=== PATIENT | male | born 1960 | race Caucasian/White ===

== ENCOUNTER → 2017-12-22 08:49 | Outpatient (CLI) | payer BC, SELFPAY ==
--- NOTE | 2017-12-22 | IMM_PTH ---
PATIENT: PAYAM GRANADOS LOC: [facility] U#:[id number] AGE/SX: 65/M ROOM: RE12/22/[address]: Dr. Curt Maier MD : 1960 BED: DIS: SPEC #: [id number] RECD: 12/26/17 10:28 STATUS: BETSY REJanice #: [id number] SHAHRIAR: 12/22/17 00:[address]: Curt Maier DEPT: IMMUNOHISTOCHEMISTRY RECD BY: Emilee Owens Tissues: A - PROSTATE RIGHT Procedures: P40 (add) 34BE12 (initial) PHYSICIAN & INSTITUTION [place] [address] SPECIMEN INFORMATION: Tissue Source: A - Right prostate, apex, core biopsy Clinical Info: Elevated PSA Specimen Number: [id number] CPT code: 64603, 09238 METHODOLOGY: Deparaffinized sections of prefer/formalin-fixed tissue or PAP/DQ stained slides are incubated with monoclonal/polyclonal antibodies/oligonucleotide probes. Localization is made via biotin free immunoperoxidase method. Appropriate controls are performed and reacted as expected. Results on target cell population are indicated in the following table: RESULTS: ANTIBODY / CLONE RESULT Block A P40 (BC28) positive 34BE12 (34BE12) positive These tests were developed and their performance characteristics determined by [facility]. They may not have been cleared or approved by the U.S. Food and Drug Administration. The FDA has determined that such clearance or approval is not necessary. INTERPRETATION: A. Right prostate, apex, core biopsy: Negative for adenocarcinoma. NELA:remberto 12/26/17
--- NOTE | 2017-12-22 08:00 | PROSBIL_PTH ---
PATIENT: PAYAM GRANADOS LOC: [facility] U#:[id number] AGE/SX: 65/M ROOM: RE12/22/[address]: Dr. Curt Maier MD : 1960 BED: DIS: SPEC #: [id number] RECD: 12/22/17 20:25 STATUS: BETSY ANGEL #: [id number] SHAHRIAR: 12/22/17 08:[address]: Curt Maier DEPT: SURGICAL PATHOLOGY RECD BY: Emilee Owens Tissues: A - PROSTATE RIGHT B - PROSTATE RIGHT C - PROSTATE RIGHT D - PROSTATE LEFT E - PROSTATE LEFT F - PROSTATE LEFT Procedures: PROSTATE BX HEADER OPERATION: Prostate biopsy PRE-OP DIAGNOSIS: Elevated PSA TISSUE SUBMITTED: A - Right apex, B - Right mid, C - Right base, D - Left apex, E - Left mid, F - Left base MICROSCOPIC DIAGNOSIS A. Right prostate, apex, core biopsy: Prostatic tissue, negative for malignancy. See comment. B. Right prostate, mid, core biopsy: Prostatic tissue, negative for malignancy. C. Right prostate, base, core biopsy: Prostatic tissue, negative for malignancy. D. Left prostate, apex, core biopsy: Prostatic tissue, negative for malignancy. E. Left prostate, mid, core biopsy: Prostatic tissue, negative for malignancy. F. Left prostate, base, core biopsy: Prostatic tissue, negative for malignancy. SJ:remberto 12/26/17 COMMENT A. Immunohistochemistry ([id number]) supports the above diagnosis. MICROSCOPIC DESCRIPTION Slides are reviewed. GROSS DESCRIPTION A - Received is one container designated prostate, right apex. The specimen consists of two elongated fragments of light mott-white soft tissue measuring 1.2 and 1.6 cm in length and 0.1 cm in diameter. The specimen is totally submitted in one cassette. B - Received is one container designated prostate, right mid. The specimen consists of two elongated fragments of light mott-white soft tissue measuring 1.2 and 1.5 cm in length and 0.1 cm in diameter. The specimen is totally submitted in one cassette. C - Received is one container designated prostate, right base. The specimen consists of two elongated fragments of light mott-white soft tissue measuring 1.5 and 2 cm in length and 0.1 cm in diameter. The specimen is totally submitted in one cassette. D - Received is one container designated prostate, left apex. The specimen consists of two elongated fragments of light mott-white soft tissue measuring 1.3 and 1.5 cm in length and 0.1 cm in diameter. The specimen is totally submitted in one cassette. E - Received is one container designated prostate, left mid. The specimen consists of two elongated fragments of light mott-white soft tissue measuring 1.2 and 1.4 cm in length and 0.1 cm in diameter. The specimen is totally submitted in one cassette. F - Received is one container designated prostate, left base. The specimen consists of two elongated fragments of light mott-white soft tissue each measuring 1.5 cm in length and 0.1 cm in diameter. The specimen is totally submitted in one cassette. / SJ:rg 12/23/17 TC:5 CPT: 46283 x6
== END ==
PROVIDERS: Visit Provider Urology
DX: R97.20 Elevated prostate specific antigen [PSA] (principal)
CPT/HCPCS: 88305; 88341; 88342; G0416

== ENCOUNTER 2024-11-22 09:00 | Outpatient (RCR) | payer MEDICARE, SELFPAY ==
[2024-11-15 08:51] VITALS: BP 139/85; PULSE 69; RESP 18; TEMP 36.1
--- NOTE | 2024-11-15 09:51 | PCM.WC.HP ---
History of Present Illness Date of Service: 11/15/24 Chief Complaint: Right lower extremity ulceration History of Wound: Patient is a 64-year-old male who presents to the wound care center for nonhealing right lower extremity ulceration. He has PMHx of HTN, elevation of PSA, hyperlipidemia, obesity, and BPH. Does follow Dr. Barton of urology. Patient does state that the ulceration developed over the summertime in July but he feels this was from possible sun exposure as he did have a blister after being outside which did rupture and has been unable to fully heal since. He states he was close to healing however this did reopen. Ulceration has been present for 3 months and he had been applying antibiotic ointment with Band-Aid to the site. States that the wound is nonpainful and otherwise he does feel well. Patient does not wear compression stockings but according to notes does have some mild edema. He denies N/V/F/chills. Denies further complaints. [facility] [place] [place] Home Medications ?Medication ?Instructions ?Recorded ?Last Taken ?Type amlodipine 5 mg tablet 5 mg PO DAILY 11/15/24 Unknown History atorvastatin 10 mg tablet 10 mg PO DAILY 11/15/24 Unknown History hydrochlorothiazide 25 mg tablet 25 mg PO DAILY 11/15/24 Unknown History potassium chloride 10 mEq meq PO BID potassium 11/15/24 Unknown History capsule,extended release Allergy/AdvReac Type Severity Reaction Status Date / Time No Known Allergies Allergy Verified 11/15/24 12:15 ROS Constitutional Constitutional: Denies anorexia, change in weight, chills, fatigue or fever(s) Eyes Eyes: Denies blurry vision, change in vision or double vision ENT HEENT: Denies dysphagia, sinus pressure or sore throat Cardiovascular Cardiovascular: Denies chest pain, claudication or palpitations Respiratory/Chest Respiratory/Chest: Denies cough, shortness of breath at rest or wheezing Gastrointestinal Gastrointestinal: Denies abdominal pain, constipation, diarrhea, nausea or vomiting Genitourinary Genitourinary: Denies dysuria, hematuria or urinary urgency Musculoskeletal Musculoskeletal: Denies joint pain, joint stiffness or joint swelling Integumentary Integumentary: Denies jaundice, lesions, pruritus or rash Neurologic Neurologic: Denies dizziness, numbness or seizures Psychiatric Psychiatric: Denies anxiety or depression Endocrine Endocrinology: Denies cold intolerance or heat intolerance Hematologic/Lymphatic Hematologic/Lymphatic: Denies easy bleeding or easy bruising Vital Signs Vital Signs Vital Signs: 11/15/24 08:51 Temperature 97 F L Temperature Source Temporal Pulse Rate 69 Respiratory Rate 18 Blood Pressure 139/85 H Blood Pressure Mean 103 Blood Pressure Source Monitor Blood Pressure Position Semi-Fowlers Blood Pressure Location Left Arm Oxygen Delivery Method Room Air Physical Exam Const alert, oriented x3 and no apparent distress General Appearance: cooperative HEENT normocephalic Eyes General Eye: normal appearance of both eyes Neck General: normal visual inspection Lymph Lymphatic: no lymphadenopathy noted and no lymphedema noted Resp normal respiratory effort Cardio regular rate and regular rhythm Extremity no calf tenderness Extremity Narrative: Bilateral lower extremity: Vascular: DP and PT pulses palpable. CFT is less than 4 seconds to digits. Normal temperature gradient. Hair growth is diminished to digits. Neurologic: Epicritic sensation intact without focal deficit noted. Musculoskeletal: Muscle strength 5 of 5 age-appropriate. No pain to palpation of calf. Decreased range of motion of the ankle joint in dorsiflexion with the knee extended without pain or crepitus. No pain to palpation about the ulcerative site. Dermatologic: There is hyperpigmentation of the lower extremity skin secondary to chronic sun exposure. Very mild edema noted to the lower extremity which is nonpitting. There is a full-thickness ulceration noted to the posterior medial aspect of the right lower extremity with healthy appearing granular base secondary to previous blister formation in the desquamatization of the skin. No signs of infection. Skin no rashes or lesions noted Neuro moves all extremities Debridement Note Debridement Note Wound debrided: Right lower extremity Laterality: Right Wound Grade/Stage: Jorge stage I Type of Debridement: Excisional debridement Anesthesia Used: 5% Lidocaine Gel Depth: Down to and including healthy tissue and in the subcutaneous layer Percentage of wound debrided: 100 Instrument Used: 5mm curette Tissue Removed: Fibrous, devitalized subcutaneous, biofilm, slough Severity: Fat Layer Exposed Amount of bleeding with debridement: Mild Bleeding Controlled with: Compression and gauze Patient tolerated procedure: Patient tolerated procedure well Post-Debridement Measurements and Additional Note: Post-Debridement Measurements/Treatment WC - Nurse 1 - General Ulcer Assessment Start: 11/15/24 08:50 Freq: Status: Active Protocol: AMARJIT.LOWEXT Activity Type Activity Date Activity User E-sign Co-sign Detail Recorded Client Recorded Date Recorded By Document 11/15/24 08:51 IN [id number] 11/15/24 09:05 IN 11/15/24 08:51 - Today's Visit Information Type of service Initial Visit Arrival Mode Ambulatory Accompanied by self Patient Identification Verified (Name & Yes ) Safety Precautions Fall Prevention Vital Signs Temperature (97.8 F-99.1 F) 97 F L Temperature Source Temporal Pulse Rate (60-100) 69 Pulse Location Monitor Respiratory Rate (12-18) 18 Respiratory rate source Monitor Oxygen Delivery Method Room Air Blood Pressure (90/60-120/80) 139/85 H Blood Pressure Mean 103 Source Monitor Position Semi-Fowlers Blood Pressure Location Left Arm History Since Last Visit- (Skip if this is Patient's initial visit) Has dressing in place as prescribed Yes Has compression in place as prescribed Yes Has offloadiing in place as prescribed Yes Experienced any changes in pain level or Yes management Left Footwear Regular Shoe Right Footwear Regular Shoe Pain Scale: 0-10 Numeric Is Patient Pain Free? Yes - Nurse 1 - General Ulcer Measurement Start: 11/15/24 08:50 Freq: Status: Active Protocol: Activity Type Activity Date Activity User E-sign Co-sign Detail Recorded Client Recorded Date Recorded By Document 11/15/24 08:51 IN [id number] 11/15/24 09:05 IN 11/15/24 08:51 Wound Center Nurse 1 #1 Right Medial Leg -Current Size (cm) - Length 4 -Current Size (cm) - Width 3 -Current Size (cm) - Depth 0.1 -Total Square Cm 12 -Date of Last Picture (Recall this 11/15/24 field) -Photo Taken Yes -Tunneling No -Undermining/Tunneling No -Circular Undermining No -Exudate Amt Medium -Exudate Type Serosanguineous -Wound Margin Flat & Intact -Granulation Amt Large (67-100%) -Granulation Quality Pale,[place] -Necrosis Amt Small (1-33%) -Necrotic Tissue Type Adherent Slough -Texture (Sofia-wound Skin Appearance) Assessed -Moisture (Sofia-wound Skin Appearance) Assessed -Color (Sofia-wound Skin Appearance) Assessed, Erythema -Temperature (Sofia-wound Skin No Abnormality Appearance) (Pt Warm) -Tenderness on Palpation (Sofia-wound No Skin Appearance) -Ulcer Cleansing Soap and Water -Foul Odor after Cleansing No -Anesthetic Used 5% Lidocaine Gel Lower Limb Edema Present NA - Nurse 2 - General Ulcer CM Notes Start: 11/15/24 08:50 Freq: Status: Active Protocol: Activity Type Activity Date Activity User E-sign Co-sign Detail Recorded Client Recorded Date Recorded By Document 11/15/24 09:17 [facility] [id number] 11/15/24 09:20 [facility] 11/15/24 09:17 Wound Center Nurse 2 #1 Right Medial Leg -Time 09:17 -Correct Patient Yes -Correct Side, Site, Position Yes -Correct Procedure Yes -Procedure Performed Yes -Type of Procedure Debridement -Clinical Debridement Subcutaneous -Tissue Removed Subcutaneous -Post Debridement (cm) - Length 4 -Post Debridement (cm) - Width 2.7 -Post Debridement (cm) - Depth 0.1 -Total Square (Post) (cm) 10.8 -Area of Debridement (cm) - Length 4 -Area of Debridement (cm) - Width 2.7 -Total Square (Area) (cm) 10.8 -Tunneling No -Undermining/Tunneling No -Circular Undermining No -Wound/Ulcer Outcome Not Healed -Ulcer Cleansing Rinsed/ Irrigated with Saline -Foul Odor after Cleansing No -Bioengineered Tissue No -Bleeding Controlled with Pressure -Treatment Response Procedure Tolerated Well -Debridement - Subq, 1st 20sq cm Yes Pain Scale: 0-10 Numeric Is Patient Pain Free? Yes - Nurse 3 - General Ulcer D/C NN Start: 11/15/24 08:50 Freq: Status: Active Protocol: Activity Type Activity Date Activity User E-sign Co-sign Detail Recorded Client Recorded Date Recorded By Document 11/15/24 09:35 IN [id number] 11/15/24 09:37 IN 11/15/24 09:35 Wound Care Center Nurse 3 #1 Right Medial Leg -Foul Odor after Cleansing No -Negative Pressure Wound Therapy N/A -Primary Dressing Applied Promogran Adelina Matter -Primary Dressing Covered/Secured with Dry Gauze & Roll Gauze, Secured with Tape -Promogran Aedlina Matter 2 RLE -Tubular Bandage Single Layer -Size of Tubigrip Used Size E -Size E ($) 1 Pain Scale: 0-10 Numeric Is Patient Pain Free? Yes WC - Visit Discharge Discharge Condition Stable Ambulatory Status Ambulatory Transportation Private Auto Medication Reconcilliation completed & No provided to patient/care provider Clinical Summary of Care Provided Yes Notes: pt understood new dressing orders. Assessment/Plan Assessment/Plan (1) Non-pressure chronic ulcer of right calf with fat layer exposed: CODE(S): L97.212 - Non-pressure chronic ulcer of right calf with fat layer exposed (2) Venous insufficiency (chronic) (peripheral): CODE(S): I87.2 - Venous insufficiency (chronic) (peripheral) (3) Localized edema: CODE(S): R60.0 - Localized edema PLAN: Plan Patient seen and evaluated Predebridement measurement: 4.3 cm x 2.6 cm x 0.1 cm Postdebridement measurement 4.4 cm x 2.7 cm x 0.1 cm Ulceration underwent debridement as noted in the clinical panel above. Following debridement Adelina was applied to the ulcerative bed dressed with dry sterile dressing, and Tubigrip compression applied to the right lower extremity. He is to change dressing daily. Discussed elevation of lower extremities while at rest to aid in edema control. Discussed to ensure that the recliner or portion during elevation has nothing resting overlying the ulcerative site to reduce pressure at the site. Discussed continued protein intake to aid in wound healing. Alex supplementation was recommended. Will plan to obtain venous studies of bilateral lower extremities. Discussed signs and symptoms of infection. Discussed if he notices increasing redness around the ulcerative site that moves up the leg, purulent drainage from the wound site, foul odor from the wound site, or if he experiences fever greater than 101 degree accompanied by nausea, vomiting, chills of these are signs of a progressing infection and he should report to the ED for IV antibiotics and for further evaluation. He is understanding of this. The following work up and care recommendations were made: Dressing: Adelina, DSD, Tubigrip compression. Change daily Wash: Soap and water Tissue growth optimization: Adelina Offload: Elevation to lower extremities and Tubigrip compression Vascular: DP and PT pulses palpable. Vascular status not impacting healing status. Do feel this is more venous in nature. Edema: Elevation of lower extremities and Tubigrip compression Infection: No signs of infection Pain: May take [id number] Tylenol for discomfort Host factors: Suspect chronic venous insufficiency as underlying cause. I answered all the patient's questions. To return to the wound healing center in 1 week or call sooner if the patient has any questions or concerns.
[2024-11-22 08:58] VITALS: BP 135/81; PULSE 63; RESP 14; TEMP 35.9
--- NOTE | 2024-11-22 09:52 | PN.PCM_ITS ---
History of Present Illness Date of Service: 11/22/24 Chief Complaint: Right lower extremity ulceration History of Wound: Patient is a 64-year-old male who presents to the wound care center for nonhealing right lower extremity ulceration. He has PMHx of HTN, elevation of PSA, hyperlipidemia, obesity, and BPH. Does follow Dr. Barton of urology. Patient does state that the ulceration developed over the summertime in July but he feels this was from possible sun exposure as he did have a blister after being outside which did rupture and has been unable to fully heal since. He states he was close to healing however this did reopen. Ulceration has been present for 3 months and he had been applying antibiotic ointment with Band-Aid to the site. States that the wound is nonpainful and otherwise he does feel well. Patient does not wear compression stockings but according to notes does have some mild edema. He denies N/V/F/chills. Denies further complaints. Subjective Subjective This is a 64-year-old male who returns to the wound care center for continued follow-up of a right lower extremity ulceration secondary to chronic venous insufficiency. Patient has been changing dressing daily with Adelina and is wearing Tubigrip compression. He does notice a difference in his swelling with the compression and elevation of his legs. Denies constitutional symptoms. Denies further complaints. Objective Data Objective Data Vital Signs: Vital Signs Temp Pulse Resp BP O2 Del Method 96.6 F L 63 14 135/81 H Room Air 11/22/24 08:58 11/22/24 08:58 11/22/24 08:58 11/22/24 08:58 11/15/24 08:51 Oxygen Delivery Method Room Air Physical Exam Const alert, oriented x3 and no apparent distress General Appearance: cooperative HEENT normocephalic Eyes General Eye: normal appearance of both eyes Neck General: normal visual inspection Lymph Lymphatic: no lymphadenopathy noted and no lymphedema noted Resp normal respiratory effort Cardio regular rate and regular rhythm Extremity no calf tenderness Extremity Narrative: Bilateral lower extremity: Vascular: DP and PT pulses palpable. CFT is less than 4 seconds to digits. Normal temperature gradient. Hair growth is diminished to digits. Neurologic: Epicritic sensation intact without focal deficit noted. Musculoskeletal: Muscle strength 5 of 5 age-appropriate. No pain to palpation of calf. Decreased range of motion of the ankle joint in dorsiflexion with the knee extended without pain or crepitus. No pain to palpation about the ulcerative site. Dermatologic: There is hyperpigmentation of the lower extremity skin secondary to chronic sun exposure. Very mild edema noted to the lower extremity which is nonpitting. There is a full-thickness ulceration noted to the posterior medial aspect of the right lower extremity with healthy appearing granular base secondary to previous blister formation in the desquamatization of the skin. No signs of infection. Skin no rashes or lesions noted Neuro moves all extremities Debridement Note Debridement Note Wound debrided: Right lower extremity Laterality: Right Wound Grade/Stage: Jorge stage I Type of Debridement: Excisional debridement Anesthesia Used: 5% Lidocaine Gel Depth: Down to and including healthy tissue and in the subcutaneous layer Percentage of wound debrided: 100 Instrument Used: 5mm curette Tissue Removed: Fibrous, devitalized subcutaneous, biofilm, slough Severity: Fat Layer Exposed Amount of bleeding with debridement: Mild Bleeding Controlled with: Compression and gauze Patient tolerated procedure: Patient tolerated procedure well Post-Debridement Measurements and Additional Note: Post-Debridement Measurements/Treatment - Nurse 1 - General Ulcer Assessment Start: 11/15/24 08:50 Freq: Status: Active Protocol: CARLOS Activity Type Activity Date Activity User E-sign Co-sign Detail Recorded Client Recorded Date Recorded By Document 11/15/24 08:51 MT [id number] 11/15/24 09:05 MT Document 11/22/24 08:58 ML [id number] 11/22/24 09:00 ML 11/15/24 11/22/24 08:51 08:58 - Today's Visit Information Type of service Initial Visit Follow-up Visit (Physician/SERVICE LIAISON REPRESENTATIVE ) Arrival Mode Ambulatory Ambulatory Accompanied by self Patient Identification Verified (Name & Yes Yes ) Patient Requires Transmission-Based No Precautions Safety Precautions Fall Prevention Vital Signs Temperature (97.8 F-99.1 F) 97 F L 96.6 F L Temperature Source Temporal Temporal Pulse Rate (60-100) 69 63 Pulse Location Monitor Monitor Respiratory Rate (12-18) 18 14 Respiratory rate source Monitor Monitor Oxygen Delivery Method Room Air Blood Pressure (90/60-120/80) 139/85 H 135/81 H Blood Pressure Mean (mm Hg) 103 99 Source Monitor Monitor Position Semi-Fowlers Sitting Blood Pressure Location Left Arm Left Arm History Since Last Visit- (Skip if this is Patient's initial visit) Have you changed medications since your No last visit? Any new allergies or adverse reactions No Had a fall/change in ADL's that may No increase risk of falls Signs or symptoms of abuse and/or No neglect since last visit Has dressing in place as prescribed Yes Yes Has compression in place as prescribed Yes Yes Has offloadiing in place as prescribed Yes Yes Experienced any changes in pain level or Yes No management Left Footwear Regular Shoe Right Footwear Regular Shoe Pain Scale: 0-10 Numeric Is Patient Pain Free? Yes Yes - Nurse 1 - General Ulcer Measurement Start: 11/15/24 08:50 Freq: Status: Active Protocol: Activity Type Activity Date Activity User E-sign Co-sign Detail Recorded Client Recorded Date Recorded By Document 11/15/24 08:51 MT [id number] 11/15/24 09:05 MT Document 11/22/24 08:58 ML [id number] 11/22/24 09:00 ML 11/15/24 11/22/24 08:51 08:58 Wound Center Nurse 1 #1 Right Medial Leg -Current Size (cm) - Length 4 2.2 -Current Size (cm) - Width 3 1.8 -Current Size (cm) - Depth 0.1 0.1 -Total Square Cm 12 3.96 -Date of Last Picture (Recall this 11/15/24 field) -Photo Taken Yes -Tunneling No -Undermining/Tunneling No -Circular Undermining No -Exudate Amt Medium -Exudate Type Serosanguineous -Wound Margin Flat & Intact -Granulation Amt Large (67-100%) -Granulation Quality Pale,[place] -Slough/Fibrin Yes -Necrosis Amt Small (1-33%) Medium (34-66%) -Necrotic Tissue Type Adherent Slough Adherent Slough -Texture (Sofia-wound Skin Appearance) Assessed Assessed -Moisture (Sofia-wound Skin Appearance) Assessed Assessed -Color (Sofia-wound Skin Appearance) Assessed, Assessed Erythema -Temperature (Sofia-wound Skin No Abnormality No Abnormality Appearance) (Pt Warm) (Pt Warm) -Tenderness on Palpation (Sofia-wound No No Skin Appearance) -Ulcer Cleansing Soap and Water Soap and Water -Foul Odor after Cleansing No No -Anesthetic Used 5% Lidocaine 5% Lidocaine Gel Gel Lower Limb Edema Present NA WC - Nurse 2 - General Ulcer CM Notes Start: 11/15/24 08:50 Freq: Status: Active Protocol: Activity Type Activity Date Activity User E-sign Co-sign Detail Recorded Client Recorded Date Recorded By Document 11/15/24 09:17 BMF [id number] 11/15/24 09:20 BMF Document 11/22/24 09:35 DS [id number] 11/22/24 09:37 DS 11/15/24 11/22/24 09:17 09:35 Wound Center Nurse 2 #1 Right Medial Leg -Time 09:17 09:35 -Correct Patient Yes Yes -Correct Side, Site, Position Yes Yes -Correct Procedure Yes Yes -Procedure Performed Yes Yes -Type of Procedure Debridement Debridement -Clinical Debridement Subcutaneous Subcutaneous -Tissue Removed Subcutaneous Subcutaneous -Post Debridement (cm) - Length 4 2.5 -Post Debridement (cm) - Width 2.7 1.5 -Post Debridement (cm) - Depth 0.1 0.1 -Total Square (Post) (cm) 10.8 3.75 -Area of Debridement (cm) - Length 4 2.5 -Area of Debridement (cm) - Width 2.7 1.5 -Total Square (Area) (cm) 10.8 3.75 -Tunneling No No -Undermining/Tunneling No No -Circular Undermining No No -Wound/Ulcer Outcome Not Healed Not Healed -Ulcer Cleansing Rinsed/ Rinsed/ Irrigated with Irrigated with Saline Saline -Foul Odor after Cleansing No No -Bioengineered Tissue No No -Bleeding Controlled with Pressure Pressure -Treatment Response Procedure Tolerated Well -Debridement - Subq, 1st 20sq cm Yes Yes Pain Scale: 0-10 Numeric Is Patient Pain Free? Yes Yes - Nurse 3 - General Ulcer D/C NN Start: 11/15/24 08:50 Freq: Status: Active Protocol: Activity Type Activity Date Activity User E-sign Co-sign Detail Recorded Client Recorded Date Recorded By Document 11/15/24 09:35 MT [id number] 11/15/24 09:37 MT Document 11/22/24 09:52 ML [id number] 11/22/24 09:52 ML 11/15/24 11/22/24 09:35 09:52 Wound Care Center Nurse 3 #1 Right Medial Leg -Ulcer Cleansing Rinsed/ Irrigated with Saline -Foul Odor after Cleansing No -Negative Pressure Wound Therapy N/A -Primary Dressing Applied Promogran Promogran Adelina Matter Adelina Matter -Primary Dressing Covered/Secured with Dry Gauze & Dry Gauze & Roll Gauze, Roll Gauze, Secured with Secured with Tape Tape -Promogran Adelina Matter 2 1 RLE -Tubular Bandage Single Layer Single Layer -Size of Tubigrip Used Size E Size D -Size D ($) 1 -Size E ($) 1 Pain Scale: 0-10 Numeric Is Patient Pain Free? Yes Yes WC - Visit Discharge Discharge Condition Stable Ambulatory Status Ambulatory Transportation Private Auto Medication Reconcilliation completed & No provided to patient/care provider Clinical Summary of Care Provided Yes Notes: pt understood new dressing orders. Assessment/Plan Assessment/Plan (1) Non-pressure chronic ulcer of right calf with fat layer exposed: CODE(S): L97.212 - Non-pressure chronic ulcer of right calf with fat layer exposed (2) Venous insufficiency (chronic) (peripheral): CODE(S): I87.2 - Venous insufficiency (chronic) (peripheral) (3) Localized edema: CODE(S): R60.0 - Localized edema PLAN: Plan Patient seen and evaluated Predebridement measurement: 2.4 cm x 1.4 cm x 0.1 cm Postdebridement measurement 2.5 cm x 1.5 cm x 0.1 cm Ulceration underwent debridement as noted in the clinical panel above. Following debridement Adelina was applied to the ulcerative bed dressed with dry sterile dressing, and Tubigrip compression applied to the right lower extremity. He is to change dressing daily. There is decrease in size of the ulceration versus his previous visit with the current treatment regiment. Discussed elevation of lower extremities while at rest to aid in edema control. Discussed to ensure that the recliner or portion during elevation has nothing resting overlying the ulcerative site to reduce pressure at the site. Discussed continued protein intake to aid in wound healing. Alex supplementation was recommended. Will plan to obtain venous studies of bilateral lower extremities. Discussed signs and symptoms of infection. Discussed if he notices increasing redness around the ulcerative site that moves up the leg, purulent drainage from the wound site, foul odor from the wound site, or if he experiences fever greater than 101 degree accompanied by nausea, vomiting, chills of these are signs of a progressing infection and he should report to the ED for IV antibiotics and for further evaluation. He is understanding of this. The following work up and care recommendations were made: Dressing: Adelina, DSD, Tubigrip compression. Change daily Wash: Soap and water Tissue growth optimization: Adelina Offload: Elevation to lower extremities and Tubigrip compression Vascular: DP and PT pulses palpable. Vascular status not impacting healing status. Do feel this is more venous in nature. Edema: Elevation of lower extremities and Tubigrip compression Infection: No signs of infection Pain: May take [id number] Tylenol for discomfort Host factors: Suspect chronic venous insufficiency as underlying cause. I answered all the patient's questions. To return to the wound healing center in 1 week or call sooner if the patient has any questions or concerns.
--- NOTE | 2024-11-22 14:25 | WC ---
PHOTO-RIGHT ANKLE 11/22/24
--- NOTE | 2024-11-27 08:20 | WC ---
Dr. Ellison transfers care of this patient over to Dr. Gregory as of 11/22/24
== END 2024-11-27 23:59 | disposition home or self-care (01) ==
LOC: WC 09:00
PROVIDERS: PCP Internal Medicine; Referring Provider Nurse Practitioner Acute Care; Visit Provider Student in an Organized Health Care Education/Training Program
DX: I87.2 Venous insufficiency (chronic) (peripheral) (principal); L97.212 Non-pressure chronic ulcer of right calf with fat layer exposed; R60.0 Localized edema
CPT/HCPCS: 11042; 99213; G0463

== ENCOUNTER 2024-12-20 08:45 | Outpatient (RCR) | payer MEDICARE, SELFPAY ==
[2024-11-29 09:22] VITALS: BP 148/89; PULSE 75; RESP 18; TEMP 36.6
--- NOTE | 2024-11-29 12:05 | PCM.WC.HP ---
History of Present Illness Date of Service: 11/29/24 Chief Complaint: Right lower extremity ulceration History of Wound: Mr. Kaba is a 64-year-old who is a transfer of care to pr. Had been seeing podiatry/wound care here for right lower extremity ulceration which he sustained after significant sun exposure/sunburn. Has been using Adelina daily and covering with a dry dressing. He believes that there has been improvement. No history of diabetes. Appetite is good and feels well overall. He has no new concerns at this time. [facility] Medical History (Updated 11/29/24 @ 12:[address] Rashid Gregory MD) Sunburn, unspecified Home Medications ?Medication ?Instructions ?Recorded ?Last Taken ?Type amlodipine 5 mg tablet 5 mg PO DAILY 11/15/24 Unknown History atorvastatin 10 mg tablet 10 mg PO DAILY 11/15/24 Unknown History hydrochlorothiazide 25 mg tablet 25 mg PO DAILY 11/15/24 Unknown History potassium chloride 10 mEq meq PO BID potassium 11/15/24 Unknown History capsule,extended release Allergy/AdvReac Type Severity Reaction Status Date / Time No Known Allergies Allergy Verified 11/15/24 12:15 ROS Constitutional Constitutional: Denies anorexia, change in weight, chills, fatigue or fever(s) Eyes Eyes: Denies blurry vision, change in vision, diplopia, discongugate gaze, double vision or exophthalmos ENT HEENT: Denies abnormal hearing, bleeding gums, change in voice, dysphagia, sinus pressure or sore throat Cardiovascular Cardiovascular: Denies chest pain, claudication, cold extremities, diaphoresis, dizziness or palpitations Respiratory/Chest Respiratory/Chest: Denies cough, excessive phlegm production, hemoptysis, hoarseness, inability to speak, shortness of breath at rest or wheezing Gastrointestinal Gastrointestinal: Denies abdominal pain, constipation, diarrhea, dysphagia, nausea or vomiting Genitourinary Genitourinary: Denies abdominal discomfort, dysuria, flank pain, hematuria or urinary urgency Musculoskeletal Musculoskeletal: Denies joint pain, joint stiffness or joint swelling Integumentary Integumentary: Reports wounds; Denies erythema, furuncle, hirsutism, jaundice, pruritus or rash Neurologic Neurologic: Denies abnormal hearing, abnormal movements, abnormal speech, dizziness, numbness or seizures Psychiatric Psychiatric: Denies anxiety, auditory hallucinations, behavioral changes, cognitive impairment, depression or difficulty concentrating Endocrine Endocrinology: Denies change in body appearance, cold intolerance, deepening of the voice or heat intolerance Hematologic/Lymphatic Hematologic/Lymphatic: Denies easy bleeding or easy bruising Allergic/Immunologic Allergic/Immunologic: Denies lip swelling, tongue swelling, urticaria, eczemia or wheezing Vital Signs Vital Signs Vital Signs: 11/29/24 09:22 Temperature 97.9 F Temperature Source Temporal Pulse Rate 75 Respiratory Rate 18 Blood Pressure 148/89 H Blood Pressure Mean 108 Blood Pressure Source Monitor Blood Pressure Position Semi-Fowlers Blood Pressure Location Left Arm Physical Exam Const alert, oriented x3 and no apparent distress General Appearance: cooperative, comfortable and well kempt HEENT normocephalic, head/scalp atraumatic and hearing grossly normal bilaterally Eyes EOMs intact bilaterally General Eye: normal appearance of both eyes Neck full ROM General: normal visual inspection Resp normal respiratory effort Effort and Inspection: able to speak in complete sentences Skin Wounds: wounds noted size Size: See Clinical Note, bed granulating well, margins well approximated, no odor and surrounding erythema Neuro oriented x3, CN's II-XII intact bilaterally, moves all extremities and no focal motor deficits Psych mental status grossly normal, thought process normal, cooperative and affect normal Debridement Note Debridement Note Wound debrided: Right Lower Extremity ( Distal, medial ) Type of Debridement: Excisional debridement Depth: Down to and including healthy tissue and in the subcutaneous layer Percentage of wound debrided: 100 Instrument Used: 5mm curette Tissue Removed: Slough and devitalized tissue Severity: Fat Layer Exposed Amount of bleeding with debridement: Mild Bleeding Controlled with: Pressure Patient tolerated procedure: Patient tolerated procedure well Post-Debridement Measurements and Additional Note: Post-Debridement Measurements/Treatment - Nurse 1 - General Ulcer Assessment Start: 11/29/24 09:21 Freq: Status: Active Protocol: AMARJIT.DARIO Activity Type Activity Date Activity User E-sign Co-sign Detail Recorded Client Recorded Date Recorded By Document 11/29/24 09:22 EDVIN [id number] 11/29/24 09:25 RB 11/29/24 09:22 - Today's Visit Information Type of service Follow-up Visit (Physician/BUSINESS APPLICATIONS SPECIALIST ) Arrival Mode Ambulatory Transfer Assistance None Patient Identification Verified (Name & Yes ) Patient Requires Transmission-Based No Precautions Vital Signs Temperature (97.8 F-99.1 F) 97.9 F Temperature Source Temporal Pulse Rate (60-100) 75 Pulse Location Monitor Respiratory Rate (12-18) 18 Respiratory rate source Observation Blood Pressure (90/60-120/80) 148/89 H Blood Pressure Mean 108 Source Monitor Position Semi-Fowlers Blood Pressure Location Left Arm History Since Last Visit- (Skip if this is Patient's initial visit) Have you changed medications since your No last visit? Any new allergies or adverse reactions No Had a fall/change in ADL's that may No increase risk of falls Signs or symptoms of abuse and/or No neglect since last visit Have you been in the hospital since your No last visit? Has dressing in place as prescribed Yes Has compression in place as prescribed Yes Has offloadiing in place as prescribed N/A Experienced any changes in pain level or No management Left Footwear Regular Shoe Right Footwear Regular Shoe Pain Scale: 0-10 Numeric Is Patient Pain Free? Yes WC - Nurse 1 - General Ulcer Measurement Start: 11/29/24 09:21 Freq: Status: Active Protocol: Activity Type Activity Date Activity User E-sign Co-sign Detail Recorded Client Recorded Date Recorded By Document 11/29/24 09:22 RB [id number] 11/29/24 09:25 RB 11/29/24 09:22 Wound Center Nurse 1 #1 Right Medial Leg -Combined with other wound No -Current Size (cm) - Length 0.9 -Current Size (cm) - Width 1.4 -Current Size (cm) - Depth 0.1 -Total Square Cm 1.26 -Photo Taken Yes -Tunneling No -Undermining/Tunneling No -Circular Undermining No -Exudate Amt Medium -Exudate Type Serosanguineous -Wound Margin Distinct, Outline Attached -Granulation Amt Medium (34-66%) -Granulation Quality [place] -Slough/Fibrin Yes -Necrosis Amt Medium (34-66%) -Necrotic Tissue Type Adherent Slough -Structure Exposed N/A -Texture (Sofia-wound Skin Appearance) Assessed -Moisture (Sofia-wound Skin Appearance) Assessed,Dry/ Scaly -Color (Sofia-wound Skin Appearance) Assessed -Temperature (Sofia-wound Skin No Abnormality Appearance) (Pt Warm) -Tenderness on Palpation (Sofia-wound No Skin Appearance) -Ulcer Cleansing Wound Cleanser -Foul Odor after Cleansing No -Anesthetic Used 5% Lidocaine Gel Lower Limb Edema Present Yes Right Calf (cm) 37.8 Right Ankle (cm) 25 WC - Nurse 2 - General Ulcer CM Notes Start: 11/29/24 09:21 Freq: Status: Active Protocol: Activity Type Activity Date Activity User E-sign Co-sign Detail Recorded Client Recorded Date Recorded By Document 11/29/24 09:52 GM [id number] 11/29/24 09:54 GM 11/29/24 09:52 Wound Center Nurse 2 #1 Right Medial Leg -Time 09:52 -Correct Patient Yes -Correct Side, Site, Position Yes -Correct Procedure Yes -Procedure Performed Yes -Type of Procedure Debridement -Clinical Debridement Subcutaneous -Tissue Removed Subcutaneous -Post Debridement (cm) - Length 2.0 -Post Debridement (cm) - Width 1.0 -Post Debridement (cm) - Depth 0.1 -Total Square (Post) (cm) 2.00 -Area of Debridement (cm) - Length 2.0 -Area of Debridement (cm) - Width 2.0 -Total Square (Area) (cm) 4.00 -Tunneling No -Undermining/Tunneling No -Circular Undermining No -Wound/Ulcer Outcome Not Healed -Ulcer Cleansing Rinsed/ Irrigated with Saline -Foul Odor after Cleansing No -Bioengineered Tissue No -Bleeding Controlled with Pressure -Treatment Response Procedure Tolerated Well -Offloading No -Debridement - Subq, 1st 20sq cm Yes Pain Scale: 0-10 Numeric Is Patient Pain Free? Yes - Nurse 3 - General Ulcer D/C NN Start: 11/29/24 09:21 Freq: Status: Active Protocol: Activity Type Activity Date Activity User E-sign Co-sign Detail Recorded Client Recorded Date Recorded By Document 11/29/24 10:11 RB [id number] 11/29/24 10:11 RB 11/29/24 10:11 Wound Care Center Nurse 3 #1 Right Medial Leg -Ulcer Cleansing Rinsed/ Irrigated with Saline -Primary Dressing Applied NonAdherent Contact Layer, Promogran Adelina Matter -Primary Dressing Covered/Secured with Dry Gauze & Roll Gauze, Secured with Tape -Promogran Adelina Matter 1 RLE -Tubular Bandage Single Layer -Size of Tubigrip Used Size E -Size E ($) 1 Treatment Response Procedure Tolerated Well Pain Scale: 0-10 Numeric Is Patient Pain Free? Yes - Visit Discharge Discharge Condition Stable Ambulatory Status Ambulatory Transportation Private Auto Medication Reconcilliation completed & No provided to patient/care provider Clinical Summary of Care Provided Yes Charges/Coding Visit Charges Office Visits / Consults: 31525 OV L3 Est 20min Procedures Integumentary [id number]: [id number] Mona subq tissue 20 sq cm/< Assessment/Plan Assessment/Plan (1) Non-pressure chronic ulcer of right calf with fat layer exposed: CODE(S): L97.212 - Non-pressure chronic ulcer of right calf with fat layer exposed (2) Venous insufficiency (chronic) (peripheral): CODE(S): I87.2 - Venous insufficiency (chronic) (peripheral) (3) Localized edema: CODE(S): R60.0 - Localized edema (4) Sunburn, unspecified: CODE(S): L55.9 - Sunburn, unspecified PLAN: Plan Debridement done as documented above, procedure was well-tolerated. As above, transfer of care to pr and it appears that there has been some improvement. Per his history, started out following significant sun exposure. Has not been seen by her sign language translator for skin cancer screening/evaluation, he was advised to. Continue Adelina however due to crusting, cover with Adaptic. Change daily or when soiled. Continue other chronic wound care measures including adequate protein intake, compression and elevation. His questions were answered and he was advised to let us know if he had any further questions or concerns. Follow-up for a courtesy visit in 2 weeks due to other appointments. Follow-up in 3 weeks with me. This note was generated with theeventwall dictation software. It may contain incorrect words, spelling, and punctuation that were not noted in checking the note before signing.
--- NOTE | 2024-12-03 10:21 | WC ---
PHOTO-RIGHT ANKLE 11/29/24
[2024-12-13 09:46] VITALS: BP 134/86; PULSE 72; RESP 18; TEMP 35.8
[2024-12-13 10:07] VITALS: BMI 36.2
--- NOTE | 2024-12-17 10:58 | PCM.WC.HP ---
History of Present Illness Date of Service: 12/13/24 Chief Complaint: Right lower extremity ulceration History of Wound: The patient is seen as a courtesy visit for Dr. Gregory. The patient's history is as follows: Mr. Kaba is a 64-year-old who is a transfer of care to [facility]. Had been seeing podiatry/wound care here for right lower extremity ulceration which he sustained after significant sun exposure/sunburn. Has been using Adelina daily and covering with a dry dressing. He believes that there has been improvement. No history of diabetes. Appetite is good and feels well overall. He has no new concerns at this time. The patient's right lower extremity ulceration has been present since about July 2024. 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 He claims to be quite active. He is able to walk liberally, and without limitations. He denies a history of lower extremity thrombophlebitis. He experiences occasional swelling in his lower extremities. He claims to sleep on a flat mattress at night. [facility] Medical History Obesity (BMI 35.0-39.9 without comorbidity) Hyperlipidemia Hypertension BPH without urinary obstruction Sunburn, unspecified Home Medications ?Medication ?Instructions ?Recorded ?Last Taken ?Type amlodipine 5 mg tablet 5 mg PO DAILY 11/15/24 Unknown History atorvastatin 10 mg tablet 10 mg PO DAILY 11/15/24 Unknown History hydrochlorothiazide 25 mg tablet 25 mg PO DAILY 11/15/24 Unknown History potassium chloride 10 mEq 10 meq PO BID potassium 11/15/24 Unknown History capsule,extended release Allergy/AdvReac Type Severity Reaction Status Date / Time No Known Allergies Allergy Verified 11/15/24 12:15 Vital Signs Vital Signs Vital Signs: Weight Weight: 260 lb Body Mass Index (BMI) 36.2 Physical Exam Const alert, oriented x3 and no apparent distress Constitutional Narrative: The patient's BMI is 36.3. General Appearance: cooperative, comfortable and well kempt Orientation / Consciousness: awake Exam Limitations: no limitations HEENT normocephalic, head/scalp atraumatic and hearing grossly normal bilaterally Head and Scalp: normal to inspection, normocephalic and atraumatic Face and Sinus: normal facial exam Nose: external nose normal External Ear: external ears normal Eyes EOMs intact bilaterally General Eye: normal appearance of both eyes Neck full ROM General: normal visual inspection Resp normal respiratory effort, normal air movement, no retractions and no use of accessory muscles Effort and Inspection: able to speak in complete sentences Skin Wounds: wounds noted size Size: See Clinical Note, bed granulating well, margins well approximated, no odor and surrounding erythema Wound Narrative: The ulceration near the right medial malleolus appears to be healed and epithelialized. Neuro oriented x3, CN's II-XII intact bilaterally, moves all extremities and no focal motor deficits Sensorium / Orientation: awake, alert, oriented to person, oriented to place and oriented to time Speech: speech normal Psych mental status grossly normal, thought process normal, cooperative and affect normal Debridement Note Debridement Note No debridement was completed: No debridement was completed today Post-Debridement Measurements and Additional Note: Post-Debridement Measurements/Treatment - Nurse 1 - General Ulcer Assessment Start: 11/29/24 09:21 Freq: Status: Active Protocol: .DARIO Activity Type Activity Date Activity User E-sign Co-sign Detail Recorded Client Recorded Date Recorded By Document 11/29/24 09:22 RB [id number] 11/29/24 09:25 RB Document 12/13/24 09:46 RB [id number] 12/13/24 09:49 RB Document 12/13/24 10:07 GM [id number] 12/13/24 10:07 11/29/24 12/13/24 12/13/24 09:22 09:46 10:07 - Today's Visit Information Type of service Follow-up Visit Follow-up Visit (Physician/PHYSICIAN PRACTICE CONSULTANT (Physician/PHYSICIAN PRACTICE CONSULTANT ) ) Arrival Mode Ambulatory Ambulatory Transfer Assistance None None Patient Identification Verified (Name & Yes Yes ) Patient Requires Transmission-Based No No Precautions Height and Weight Height 5 ft 11 in Weight 260 lb Weight in Pounds 260.0 lbs Weight Measurement Method Estimated by Patient Body Mass Index (BMI) 36.2 BMI Classification Obese Vital Signs Temperature (97.8 F-99.1 F) 97.9 F 96.4 F L Temperature Source Temporal Temporal Pulse Rate (60-100) 75 72 Pulse Location Monitor Monitor Respiratory Rate (12-18) 18 18 Respiratory rate source Observation Observation Blood Pressure (90/60-120/80) 148/89 H 134/86 H Blood Pressure Mean 108 102 Source Monitor Monitor Position Semi-Fowlers Semi-Fowlers Blood Pressure Location Left Arm Left Arm History Since Last Visit- (Skip if this is Patient's initial visit) Have you changed medications since your No No last visit? Any new allergies or adverse reactions No No Had a fall/change in ADL's that may No No increase risk of falls Signs or symptoms of abuse and/or No No neglect since last visit Have you been in the hospital since your No No last visit? Has dressing in place as prescribed Yes Yes Has compression in place as prescribed Yes Yes Has offloadiing in place as prescribed N/A N/A Experienced any changes in pain level or No No management Left Footwear Regular Shoe Regular Shoe Right Footwear Regular Shoe Regular Shoe Pain Scale: 0-10 Numeric Is Patient Pain Free? Yes Yes Yes WC - Nurse 1 - General Ulcer Measurement Start: 11/29/24 09:21 Freq: Status: Active Protocol: Activity Type Activity Date Activity User E-sign Co-sign Detail Recorded Client Recorded Date Recorded By Document 11/29/24 09:22 RB [id number] 11/29/24 09:25 RB Document 12/13/24 09:46 RB [id number] 12/13/24 09:49 RB 11/29/24 12/13/24 09:22 09:46 Wound Center Nurse 1 #1 Right Medial Leg -Combined with other wound No No -Current Size (cm) - Length 0.9 0.1 -Current Size (cm) - Width 1.4 0.1 -Current Size (cm) - Depth 0.1 0.1 -Total Square Cm 1.26 0.01 -Photo Taken Yes Yes -Epithelialization Large 67-100% -Tunneling No No -Undermining/Tunneling No No -Circular Undermining No No -Exudate Amt Medium None Present -Exudate Type Serosanguineous -Wound Margin Distinct, Distinct, Outline Outline Attached Attached -Granulation Amt Medium (34-66%) Large (67-100%) -Granulation Quality [place] -Slough/Fibrin Yes No -Necrosis Amt Medium (34-66%) None Present (0 %) -Necrotic Tissue Type Adherent Slough -Structure Exposed N/A N/A -Texture (Sofia-wound Skin Appearance) Assessed Assessed -Moisture (Sofia-wound Skin Appearance) Assessed,Dry/ Assessed Scaly -Color (Sofia-wound Skin Appearance) Assessed Assessed -Temperature (Sofia-wound Skin No Abnormality No Abnormality Appearance) (Pt Warm) (Pt Warm) -Tenderness on Palpation (Sofia-wound No No Skin Appearance) -Ulcer Cleansing Wound Cleanser Wound Cleanser -Foul Odor after Cleansing No No -Anesthetic Used 5% Lidocaine 5% Lidocaine Gel Gel Lower Limb Edema Present Yes Yes Right Calf (cm) 37.8 38.5 Right Ankle (cm) 25 25 WC - Nurse 2 - General Ulcer CM Notes Start: 11/29/24 09:21 Freq: Status: Active Protocol: Activity Type Activity Date Activity User E-sign Co-sign Detail Recorded Client Recorded Date Recorded By Document 11/29/24 09:52 [id number] 11/29/24 09:54 GM Document 12/13/24 10:08 [id number] 12/13/24 10:15 GM 11/29/24 12/13/24 09:52 10:08 Wound Center Nurse 2 #1 Right Medial Leg -Time 09:52 10:08 -Correct Patient Yes Yes -Correct Side, Site, Position Yes Yes -Correct Procedure Yes No -Procedure Performed Yes No -Type of Procedure Debridement -Clinical Debridement Subcutaneous -Tissue Removed Subcutaneous -Post Debridement (cm) - Length 2.0 -Post Debridement (cm) - Width 1.0 -Post Debridement (cm) - Depth 0.1 -Total Square (Post) (cm) 2.00 -Area of Debridement (cm) - Length 2.0 -Area of Debridement (cm) - Width 2.0 -Total Square (Area) (cm) 4.00 -Tunneling No No -Undermining/Tunneling No No -Circular Undermining No No -Wound/Ulcer Outcome Not Healed Healed- Epithelialized -Ulcer Cleansing Rinsed/ Rinsed/ Irrigated with Irrigated with Saline Saline -Foul Odor after Cleansing No No -Bioengineered Tissue No No -Bleeding Controlled with Pressure NA -Treatment Response Procedure Tolerated Well -Offloading No No -Debridement - Subq, 1st 20sq cm Yes Pain Scale: 0-10 Numeric Is Patient Pain Free? Yes Yes - Nurse 3 - General Ulcer D/C NN Start: 11/29/24 09:21 Freq: Status: Active Protocol: Activity Type Activity Date Activity User E-sign Co-sign Detail Recorded Client Recorded Date Recorded By Document 11/29/24 10:11 [id number] 11/29/24 10:11 RB Document 12/13/24 10:21 GM [id number] 12/13/24 10:22 GM 11/29/24 12/13/24 10:11 10:21 Wound Care Center Nurse 3 #1 Right Medial Leg -Ulcer Cleansing Rinsed/ Not Cleansed Irrigated with Saline -Primary Dressing Applied NonAdherent C Hydrogel Contact Layer, Promogran Adelina Matter -Primary Dressing Covered/Secured with Dry Gauze & Dry Gauze Roll Gauze, Secured with Tape -Hydrogel 1 -Promogran Adelina Matter 1 RLE -Tubular Bandage Single Layer -Size of Tubigrip Used Size E -Size E ($) 1 Treatment Response Procedure Tolerated Well Pain Scale: 0-10 Numeric Is Patient Pain Free? Yes Yes WC - Visit Discharge Discharge Condition Stable Stable Ambulatory Status Ambulatory Ambulatory Transportation Private Auto Private Auto Medication Reconcilliation completed & No provided to patient/care provider Clinical Summary of Care Provided Yes Charges/Coding Visit Charges Office Visits / Consults: [id number] OV L4 New 45min Assessment/Plan Assessment/Plan (1) Non-pressure chronic ulcer of right calf with fat layer exposed: CODE(S): L97.212 - Non-pressure chronic ulcer of right calf with fat layer exposed (2) Venous insufficiency (chronic) (peripheral): CODE(S): I87.2 - Venous insufficiency (chronic) (peripheral) (3) Localized edema: CODE(S): R60.0 - Localized edema (4) Sunburn, unspecified: CODE(S): L55.9 - Sunburn, unspecified (5) BPH without urinary obstruction: (6) Hypertension: CODE(S): I10 - Essential (primary) hypertension (7) Hyperlipidemia: CODE(S): E78.5 - Hyperlipidemia, unspecified (8) Obesity (BMI 35.0-39.9 without comorbidity): CODE(S): E66.9 - Obesity, unspecified PLAN: Plan The patient's right lower extremity ulceration appears to be healed and epithelialized. We are to continue conservative measures regarding the patient's chronic venous disease. He has been encouraged to sleep on a flat mattress at night. Leg elevation is to be implemented during daytime hours as well, as much as possible. Legs are to be elevated to heart level, or higher. Prolonged idle sitting has been discouraged. Activity/ambulation has been encouraged. Tubigrips are to be donned on a daily basis. The patient is to continue applying collagen hydrogel to the recently healed ulcer site. Long-term lower extremity compression has been advised. A prescription has been provided for graduated compression stockings, knee-high length, of 20 to 30 mmHg compression. The patient is to return in 1 week for follow-up with Dr. Gregory, his established Wound Center physician. The patient is likely to be discharged at that time. Total time: 45 minutes
[2024-12-20 08:52] VITALS: BP 148/92; PULSE 75; RESP 16; TEMP 36; BMI 36.2
--- NOTE | 2024-12-20 09:54 | PCM.WC.PN ---
History of Present Illness Date of Service: 12/20/24 Chief Complaint: Right lower extremity ulceration History of Wound: The patient is seen as a courtesy visit for Dr. Gregory. The patient's history is as follows: Mr. Kaba is a 64-year-old who is a transfer of care to [facility]. Had been seeing podiatry/wound care here for right lower extremity ulceration which he sustained after significant sun exposure/sunburn. Has been using Adelina daily and covering with a dry dressing. He believes that there has been improvement. No history of diabetes. Appetite is good and feels well overall. He has no new concerns at this time. The patient's right lower extremity ulceration has been present since about July 2024. 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 He claims to be quite active. He is able to walk liberally, and without limitations. He denies a history of lower extremity thrombophlebitis. He experiences occasional swelling in his lower extremities. He claims to sleep on a flat mattress at night. Progress of Wound: No new concerns reported at this time. Healed. Objective Data Objective Data Vital Signs: Vital Signs Temp Pulse Resp BP 96.8 F L 75 16 148/92 H 12/20/24 08:52 12/20/24 08:52 12/20/24 08:52 12/20/24 08:52 Weight: 260 lb Body Mass Index (BMI) 36.2 Charges/Coding Visit Charges Office Visits / Consults: [id number] OV L3 Est 20min Physical Exam Const alert, oriented x3 and no apparent distress General Appearance: cooperative, comfortable and well kempt HEENT normocephalic, head/scalp atraumatic and hearing grossly normal bilaterally Eyes EOMs intact bilaterally General Eye: normal appearance of both eyes Neck full ROM General: normal visual inspection Resp normal respiratory effort Effort and Inspection: able to speak in complete sentences Neuro oriented x3, CN's II-XII intact bilaterally, moves all extremities and no focal motor deficits Psych mental status grossly normal, thought process normal, cooperative and affect normal Debridement Note Debridement Note Post-Debridement Measurements and Additional Note: Post-Debridement Measurements/Treatment AMARJIT - Nurse 1 - General Ulcer Assessment Start: 11/29/24 09:21 Freq: Status: Active Protocol: CARLOS Activity Type Activity Date Activity User E-sign Co-sign Detail Recorded Client Recorded Date Recorded By Document 11/29/24 09:22 RB [id number] 11/29/24 09:25 RB Document 12/13/24 09:46 RB [id number] 12/13/24 09:49 RB Document 12/13/24 10:07 GM [id number] 12/13/24 10:07 GM Document 12/20/24 08:52 MT [id number] 12/20/24 08:55 MT 11/29/24 12/13/24 12/13/24 09:22 09:46 10:07 WC - Today's Visit Information Type of service Follow-up Visit Follow-up Visit (Physician/EVENT DECORATOR AND DESIGNER (Physician/EVENT DECORATOR AND DESIGNER ) ) Arrival Mode Ambulatory Ambulatory Transfer Assistance None None Patient Identification Verified (Name & Yes Yes ) Patient Requires Transmission-Based No No Precautions Safety Precautions Height and Weight Height 5 ft 11 in Weight 260 lb Weight in Pounds 260.0 lbs Weight Measurement Method Estimated by Patient Body Mass Index (BMI) 36.2 BMI Classification Obese Vital Signs Temperature (97.8 F-99.1 F) 97.9 F 96.4 F L Temperature Source Temporal Temporal Pulse Rate (60-100) 75 72 Pulse Location Monitor Monitor Respiratory Rate (12-18) 18 18 Respiratory rate source Observation Observation Blood Pressure (90/60-120/80) 148/89 H 134/86 H Blood Pressure Mean (mm Hg) 108 102 Source Monitor Monitor Position Semi-Fowlers Semi-Fowlers Blood Pressure Location Left Arm Left Arm History Since Last Visit- (Skip if this is Patient's initial visit) Have you changed medications since your No No last visit? Any new allergies or adverse reactions No No Had a fall/change in ADL's that may No No increase risk of falls Signs or symptoms of abuse and/or No No neglect since last visit Have you been in the hospital since your No No last visit? Has dressing in place as prescribed Yes Yes Has compression in place as prescribed Yes Yes Has offloadiing in place as prescribed N/A N/A Experienced any changes in pain level or No No management Left Footwear Regular Shoe Regular Shoe Right Footwear Regular Shoe Regular Shoe Pain Scale: 0-10 Numeric Is Patient Pain Free? Yes Yes Yes 12/20/24 08:52 WC - Today's Visit Information Type of service Follow-up Visit (Physician/EVENT DECORATOR AND DESIGNER ) Arrival Mode Ambulatory Transfer Assistance None Patient Identification Verified (Name & Yes ) Patient Requires Transmission-Based No Precautions Safety Precautions NA Height and Weight Height Weight Weight in Pounds Weight Measurement Method Body Mass Index (BMI) 36.2 BMI Classification Obese Vital Signs Temperature (97.8 F-99.1 F) 96.8 F L Temperature Source Temporal Pulse Rate (60-100) 75 Pulse Location Monitor Respiratory Rate (12-18) 16 Respiratory rate source Observation Blood Pressure (90/60-120/80) 148/92 H Blood Pressure Mean (mm Hg) 110 Source Monitor Position Sitting Blood Pressure Location History Since Last Visit- (Skip if this is Patient's initial visit) Have you changed medications since your No last visit? Any new allergies or adverse reactions No Had a fall/change in ADL's that may No increase risk of falls Signs or symptoms of abuse and/or No neglect since last visit Have you been in the hospital since your No last visit? Has dressing in place as prescribed Yes Has compression in place as prescribed N/A Has offloadiing in place as prescribed N/A Experienced any changes in pain level or No management Left Footwear Removable Cast Walker/Walking Boot Right Footwear Pain Scale: 0-10 Numeric Is Patient Pain Free? Yes WC - Nurse 1 - General Ulcer Measurement Start: 11/29/24 09:21 Freq: Status: Active Protocol: Activity Type Activity Date Activity User E-sign Co-sign Detail Recorded Client Recorded Date Recorded By Document 11/29/24 09:22 RB [id number] 11/29/24 09:25 RB Document 12/13/24 09:46 RB [id number] 12/13/24 09:49 RB Document 12/20/24 08:52 CA [id number] 12/20/24 08:55 CA 11/29/24 12/13/24 12/20/24 09:22 09:46 08:52 Wound Center Nurse 1 #1 Right Medial Leg -Combined with other wound No No No -Current Size (cm) - Length 0.9 0.1 0 -Current Size (cm) - Width 1.4 0.1 0 -Current Size (cm) - Depth 0.1 0.1 0 -Total Square Cm 1.26 0.01 0 -Photo Taken Yes Yes Yes -Epithelialization Large 67-100% Large 67-100% -Tunneling No No No -Undermining/Tunneling No No No -Circular Undermining No No -Exudate Amt Medium None Present None Present -Exudate Type Serosanguineous -Wound Margin Distinct, Distinct, Indistinct, Non Outline Outline -Visible Attached Attached -Granulation Amt Medium (34-66%) Large (67-100%) Large (67-100%) -Granulation Quality [place] -Slough/Fibrin Yes No No -Necrosis Amt Medium (34-66%) None Present (0 None Present (0 %) %) -Necrotic Tissue Type Adherent Slough -Structure Exposed N/A N/A -Texture (Sofia-wound Skin Appearance) Assessed Assessed -Moisture (Sofia-wound Skin Appearance) Assessed,Dry/ Assessed Scaly -Color (Sofia-wound Skin Appearance) Assessed Assessed -Temperature (Sofia-wound Skin No Abnormality No Abnormality Appearance) (Pt Warm) (Pt Warm) -Tenderness on Palpation (Sofia-wound No No Skin Appearance) -Ulcer Cleansing Wound Cleanser Wound Cleanser -Foul Odor after Cleansing No No -Anesthetic Used 5% Lidocaine 5% Lidocaine Gel Gel Lower Limb Edema Present Yes Yes Right Calf (cm) 37.8 38.5 Right Ankle (cm) 25 25 WC - Nurse 2 - General Ulcer CM Notes Start: 11/29/24 09:21 Freq: Status: Active Protocol: Activity Type Activity Date Activity User E-sign Co-sign Detail Recorded Client Recorded Date Recorded By Document 11/29/24 09:52 [id number] 11/29/24 09:54 Document 12/13/24 10:08 [id number] 12/13/24 10:15 Document 12/20/24 09:11 [id number] 12/20/24 09:12 11/29/24 12/13/24 12/20/24 09:52 10:08 09:11 Wound Center Nurse 2 #1 Right Medial Leg -Time 09:52 10:08 09:11 -Correct Patient Yes Yes Yes -Correct Side, Site, Position Yes Yes Yes -Correct Procedure Yes No No -Procedure Performed Yes No No -Type of Procedure Debridement -Clinical Debridement Subcutaneous -Tissue Removed Subcutaneous -Post Debridement (cm) - Length 2.0 -Post Debridement (cm) - Width 1.0 -Post Debridement (cm) - Depth 0.1 -Total Square (Post) (cm) 2.00 -Area of Debridement (cm) - Length 2.0 -Area of Debridement (cm) - Width 2.0 -Total Square (Area) (cm) 4.00 -Tunneling No No No -Undermining/Tunneling No No No -Circular Undermining No No No -Wound/Ulcer Outcome Not Healed Healed- Healed- Epithelialized Epithelialized -Ulcer Cleansing Rinsed/ Rinsed/ Not Cleansed Irrigated with Irrigated with Saline Saline -Foul Odor after Cleansing No No No -Bioengineered Tissue No No No -Bleeding Controlled with Pressure NA NA -Treatment Response Procedure Tolerated Well -Offloading No No -Debridement - Subq, 1st 20sq cm Yes Pain Scale: 0-10 Numeric Is Patient Pain Free? Yes Yes Yes - Nurse 3 - General Ulcer D/C NN Start: 11/29/24 09:21 Freq: Status: Active Protocol: Activity Type Activity Date Activity User E-sign Co-sign Detail Recorded Client Recorded Date Recorded By Document 11/29/24 10:11 RB [id number] 11/29/24 10:11 RB Document 12/13/24 10:21 [id number] 12/13/24 10:22 GM Document 12/20/24 09:14 [id number] 12/20/24 09:15 GM 11/29/24 12/13/24 12/20/24 10:11 10:21 09:14 Wound Care Center Nurse 3 #1 Right Medial Leg -Ulcer Cleansing Rinsed/ Not Cleansed Not Cleansed Irrigated with Saline -Primary Dressing Applied NonAdherent C Hydrogel NonAdherent Contact Layer, Contact Layer, Promogran [place] 5x5 1/2 Adelina Matter -Primary Dressing Covered/Secured with Dry Gauze & Dry Gauze Roll Gauze, Secured with Tape -Hydrogel 1 -[place] 5x5 1/2 1 -Promogran Adelina Matter 1 RLE -Tubular Bandage Single Layer -Size of Tubigrip Used Size E -Size E ($) 1 Treatment Response Procedure Tolerated Well Pain Scale: 0-10 Numeric Is Patient Pain Free? Yes Yes Yes - Visit Discharge Discharge Condition Stable Stable Stable Ambulatory Status Ambulatory Ambulatory Ambulatory Transportation Private Auto Private Auto Private Auto Medication Reconcilliation completed & No provided to patient/care provider Clinical Summary of Care Provided Yes Assessment/Plan Assessment/Plan (1) Non-pressure chronic ulcer of right calf with fat layer exposed: CODE(S): L97.212 - Non-pressure chronic ulcer of right calf with fat layer exposed (2) Venous insufficiency (chronic) (peripheral): CODE(S): I87.2 - Venous insufficiency (chronic) (peripheral) (3) Localized edema: CODE(S): R60.0 - Localized edema (4) Sunburn, unspecified: CODE(S): L55.9 - Sunburn, unspecified PLAN: Plan Healed, no new concerns reported at this time. Adaptic and gauze over area for 2 weeks and then stop. Has picked up his compression, continue consistent use of compression stockings. With significant sun exposure, sun block/screen is recommended continue other chronic wound care measures including adequate protein intake, compression and elevation. His questions were answered and he was advised to let us know if he had any further questions or concerns. Discharged from the wound center. This note was generated with [employer] dictation software. It may contain incorrect words, spelling, and punctuation that were not noted in checking the note before signing.
== END 2024-12-28 23:59 | disposition home or self-care (01) ==
LOC: WC 08:45
PROVIDERS: PCP Internal Medicine; Referring Provider Nurse Practitioner Acute Care; Visit Provider Internal Medicine
DX: L97.212 Non-pressure chronic ulcer of right calf with fat layer exposed (principal); I87.2 Venous insufficiency (chronic) (peripheral); E78.5 Hyperlipidemia, unspecified; I10 Essential (primary) hypertension; R60.0 Localized edema; L55.9 Sunburn, unspecified; Z68.36 Body mass index [BMI] 36.0-36.9, adult; N40.0 Benign prostatic hyperplasia without lower urinary tract symptoms; E66.9 Obesity, unspecified
CPT/HCPCS: 11042; 99213; G0463